=== PATIENT | female | born 2000 | race African-American/Black ===

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

== ENCOUNTER 2023-05-03 21:57 | Emergency (ER) | payer OTHER ==
[2023-05-03 22:09] VITALS: RESP 18; TEMP 98; BMI 24.1
[2023-05-03] MEDS ORDERED: SODIUM CHLORIDE 0.9% 500 ML INFUS.BAG IV ONE (23:09)
[2023-05-03 23:37] LABS: BASO % 0.9 % (0-2.0); HEMATOCRIT 33.9 % (32.4-45.2); LYMPH % 44.3 % (8-40); MCH 23.1 pg (25.7-33.7); MCHC 32.4 g/dl (32.0-36.0); MEAN CELL VOLUME 71.1 fl (80-96); MONO % 6.4 % (3.8-10.2); NEUT % 46.4 % (42.8-82.8); PLATELET COUNT 296 10^3/uL (134-434); RBC 4.77 M/mm3 (3.60-5.2); RDW 19.3 % (11.6-15.6); WHITE BLOOD COUNT 6.9 K/mm3 (4.0-10.0)
[2023-05-03 23:44] LABS: INR 1.11 (0.83-1.09); PROTHROMBIN TIME (PATIENT) 12.9 SEC (9.7-13.0)
[2023-05-03 23:47] LABS: ACTIVATED PTT 31.9 SECONDS (25.2-36.5)
[2023-05-04] MEDS ORDERED: PHENAZOPYRIDINE HCL 100 MG TABLET (FP) PO ONE (00:17)
[2023-05-04 00:35] LABS: POTASSIUM 3.9 mmol/L (3.5-5.1)
[2023-05-04 00:37] LABS: CALCIUM 9.3 mg/dL (8.5-10.1)
[2023-05-04 00:38] LABS: ALBUMIN 3.8 g/dl (3.4-5.0); BLOOD UREA NITROGEN 7.4 mg/dL (7-18)
[2023-05-04 00:40] LABS: CREATININE 0.7 mg/dL (0.55-1.3)
[2023-05-04] MEDS ORDERED: PHENAZOPYRIDINE HCL 100 MG TABLET (FP) ONE (00:41)
[2023-05-04 00:42] LABS: TOT PROT 7.8 g/dl (6.4-8.2)
[2023-05-04 00:43] LABS: BILIRUBIN,TOTAL 0.2 mg/dL (0.2-1)
[2023-05-04 02:30] VITALS: BP 122/80; PULSE 75
== END 2023-05-04 02:31 | disposition home or self-care (01) ==
LOC: JER 21:57
DX: N93.9 Abnormal uterine and vaginal bleeding, unspecified (principal); R10.30 Lower abdominal pain, unspecified; R42 Dizziness and giddiness
CPT/HCPCS: 36415; 76830-TC; 80053; 84702; 85025; 85610; 85730; 86850; 86900; 86901; 99284-25